=== PATIENT | female | born 1935 | race African-American/Black ===

== ENCOUNTER 2024-11-14 12:51 | Emergency (ER) | payer OTHER ==
[~2024-11-14] VITALS: Ht 154.9 cm; Wt 48.6 kg
[2024-11-14 13:21] VITALS: TEMP 97.3
[2024-11-14 14:54] LABS: BASOPHILS % (AUTO) 0.7 % (0.0-2.0); EOSINOPHILS % (AUTO) 0.7 % (1.0-6.0); HEMATOCRIT 39.2 % (36-46); HEMOGLOBIN 13.2 g/dL (12.0-16.0); LYMPHOCYTES # (AUTO) 1.7 K/uL (1.0-4.8); LYMPHOCYTES % (AUTO) 42.8 % (22.0-44.0); MEAN CORPUSCULAR HEMOGLOBIN 31.8 pg (26.0-34.0); MEAN CORPUSCULAR HGB CONC 33.7 G/dL (31.0-37.0); MEAN CORPUSCULAR VOLUME 94 fL (80-100); MONOCYTES # (AUTO) 0.4 K/uL (0.1-1.0); MONOCYTES % (AUTO) 9.1 % (2.0-9.0); NEUTROPHILS # (AUTO) 1.8 K/uL (1.8-7.7); NEUTROPHILS % (AUTO) 46.7 % (40.0-70.0); PLATELET COUNT (AUTO) 230 K/uL (150-450); RED BLOOD CELL COUNT(AUTO) 4.16 MIL/uL (4.00-5.20); RED CELL DISTRIBUTION WIDTH 14.2 % (11.5-14.5); WHITE BLOOD COUNT (AUTO) 3.9 K/uL (4.5-11.0)
[2024-11-14 14:58] LABS: ANION GAP 8 mmol/L (8-16); CARBON DIOXIDE 26 mmol/L (22-29); CHLORIDE 103 mmol/L (98-107); CREATININE 0.66 mg/dL (0.60-1.30); GLOMERULAR FILTR. RATE CALC > 60 mL/min (>60); GLUCOSE,RANDOM 96 mg/dL (70-110); SODIUM SERUM 137 mmol/L (136-145); UREA NITROGEN, BLOOD 25 mg/dL (7-18)
[2024-11-14 14:59] LABS: LIPASE 52 U/L (16-77)
[2024-11-14 15:04] LABS: LACTIC ACID 0.6 mmol/L (0.4-2.0)
[2024-11-14 15:07] LABS: TROPONIN I-HIGH SENSITIVITY 16 ng/L (<51)
[2024-11-14 15:30] LABS: APPEARANCE,URINE CLEAR (CLEAR); BILIRUBIN,URINE NEGATIVE (NEGATIVE); COLOR,URINE LIGHT YELLOW (YELLOW); GLUCOSE, URINE (UA) NEGATIVE (NEGATIVE); KETONES,URINE TRACE mg/dL (NEGATIVE); LEUKOCYTE ESTERASE ,URINE SMALL (NEGATIVE); NITRATE,URINE NEGATIVE (NEGATIVE); OCCULT BLOOD,URINE NEGATIVE (NEGATIVE); PH,URINE 5.5 (5.0-8.0); PROTEIN,URINE NEGATIVE (NEGATIVE); SPECIFIC GRAVITIY, URINE 1.022 (1.003-1.030); UROBILINOGEN,URINE <=1.0 mg/dL (<=1.0)
[2024-11-14 15:45] LABS: BACTERIA,URINE Few /HPF (None Seen); RBC,URINE 0-2 /HPF (0-2); SQUAMOUS EPITHELIAL CELL,UR Few /LPF (None Seen)
[2024-11-14] MEDS ORDERED: CEPH-556 PO (15:51)
[2024-11-14 17:13] VITALS: BP 141/70; PULSE 76; RESP 16; O2SAT 96
== END 2024-11-14 17:19 | disposition home or self-care (01) ==
LOC: EMS 12:58
DX: N39.0 Urinary tract infection, site not specified (principal); F60.0 Paranoid personality disorder; F03.92 Unspecified dementia, unspecified severity, with psychotic disturbance
CPT/HCPCS: 80048; 81001; 83605; 83690; 84484; 85025; 87086; 99283

== ENCOUNTER 2024-11-18 22:28 | Emergency (ER) | payer OTHER ==
[~2024-11-18] VITALS: Ht 154.9 cm; Wt 49.0 kg
[~2024-11-18 22:28] MED LIST: CEPH-556 PO
[2024-11-18 22:38] VITALS: BP 150/73; PULSE 69; RESP 18; TEMP 97.8; O2SAT 100
== END 2024-11-19 01:13 | disposition home or self-care (01) ==
LOC: EMS 22:28
DX: F60.0 Paranoid personality disorder (principal); F03.92 Unspecified dementia, unspecified severity, with psychotic disturbance; R11.0 Nausea; Z87.440 Personal history of urinary (tract) infections
CPT/HCPCS: 99284; Z7502